=== PATIENT | male | born 1960 | race Caucasian/White ===

== ENCOUNTER 2024-01-19 11:36 | Day surgery (SDC) | payer BC ==
[~2024-01-19] VITALS: Ht 177.8 cm; Wt 100.2 kg
[2024-01-19] VITALS (17 sets, daily range): BP systolic 104–164; BP diastolic 74–106
[~2024-01-19 11:36] MED LIST: BENA20 PO; LORPSEER24; Lactated Ringer's 1,000 ML IV SCH; METF500C PO; SIMV10 PO
[2024-01-19] MEDS ORDERED: ATOR10 PO (12:07)
[2024-01-19] MEDS ORDERED: AMLO10 PO (12:08)
--- NOTE | 2024-01-19 12:23 | NUR ---
History, Chart, Medications and Allergies reviewed before start of procedure. Pre-Op teaching done. Pt verbalizes understanding. Patient confirms NPO status and agrees with scheduled surgery. Patient states colon prep results clear. Patient States Post-Procedure ride home has been arranged. Lungs clear T/O to Auscultation.
[2024-01-19] MEDS ORDERED: propofoL 40 ML IV ONE (12:43)
--- NOTE | 2024-01-19 13:29 | NUR ---
01/19/24 1329 Mamta Molina HISTORY, CHART, MEDICATIONS AND ALLERGIES REVIEWED BEFORE START OF PROCEDURE. PATIENT CONFIRMS NPO STATUS AND AGREES WITH SCHEDULED PROCEDURE. 3-LEAD EKG REVIEWED WITH PHYSICIAN PRIOR TO START OF PROCEDURE. MONITOR INTACT WITH CONTINUOUS PULSE OXIMETRY,CAPNOGRAPHY, 3-LEAD EKG, INTERMITTENT BP. SUPPLEMENTAL O2 TO BE TITRATED THROUGHOUT PROCEDURE TO MAINTAIN O2 SATURATION ABOVE 90%. PATIENT DETERMINED TO BE ASA APPROPRIATE FOR PROPOFOL SEDATION PRIOR TO START OF PROCEDURE BY DR. JACINTO.
--- NOTE | 2024-01-19 13:57 | NUR ---
Patient up to Ambulate independently. Gait steady. Discharge instructions reviewed with patient. Patient verbalizes understanding. Copy given to patient to take home. Patient States Post-Procedure ride home has been arranged. Discharged via wheelchair to private car for ride home. pt belongings returned to pt.
== END 2024-01-19 13:58 | disposition home or self-care (01) ==
LOC: ORSCMMR 11:36 → ORSCSDS 12:30 → ORSCMMR 13:58
PROVIDERS: Surgery
PROC: 0DBC8ZX Excision of Ileocecal Valve, Via Natural or Artificial Opening Endoscopic, Diagnostic (ICD-10-PCS; principal; 2024-01-19 12:30)
DX: Z12.11 Encounter for screening for malignant neoplasm of colon (principal); Z86.010 Personal history of colon polyps; D12.1 Benign neoplasm of appendix; E11.9 Type 2 diabetes mellitus without complications; I10 Essential (primary) hypertension; E78.5 Hyperlipidemia, unspecified; G47.33 Obstructive sleep apnea (adult) (pediatric); Z79.899 Other long term (current) drug therapy; E66.9 Obesity, unspecified; Z68.33 Body mass index [BMI] 33.0-33.9, adult
CPT/HCPCS: 82947; 88305; J2704; J7120